=== PATIENT | female | born 1960 | race Caucasian/White ===

== ENCOUNTER 2017-05-20 15:55 | Emergency (ER) | payer BC, MEDICARE ==
[~2017-05-20] VITALS: Ht 165.1 cm; Wt 49.9 kg
--- OUTSIDE RECORDS SUMMARY | 2017-05-20 16:42 | External Medical Summary Rpt | CCD ---
Author Author YESSICA Address Unknown Phone Purpose Continuity of Care Document - through 2016
--- OUTSIDE RECORDS SUMMARY | 2017-05-20 16:42 | External Medical Summary Rpt | CCD ---
Author Author YESSICA Address Unknown Phone [email or web address] Purpose Continuity of Care Document - through 2016
--- OUTSIDE RECORDS SUMMARY | 2017-05-20 16:43 | External Medical Summary Rpt | CCD ---
Author Author [employer] Organization [employer] Address Unknown Phone Unavailable Purpose Continuity of Care Document - through 2016
--- OUTSIDE RECORDS SUMMARY | 2017-05-20 16:43 | External Medical Summary Rpt ---
Author Author YESSICA Ryan, [employer] Organization [employer] Address Unknown Phone Unavailable
--- OUTSIDE RECORDS SUMMARY | 2017-05-20 16:43 | External Medical Summary Rpt | CCD ---
Demographics Home Phone Preferred Language Maltese Marital Status Unknown Zoroastrian Affiliation Unknown Race Unknown Ethnic Group Unknown Author Author , ROSEVANESSA Kael YESSICA Address Unknown Phone [email or web address] Immunization Name Date Rout CVX Reac Dose Comm Prov Is Faci e tion ent ider Refu lity Give sed n Infl 09-1 88 999 Hist D200 No D200 uenz 5-20 oric 32 32 a, 15 al UF Info rmat ion - Sour ce Unsp ecif ied PCV1 07-2 133 999 Hist STEP No STEP 3 1-20 oric PULM PULM 15 al CRV CRV Info rmat ion - Sour ce Unsp ecif ied Infl 10-1 88 999 Hist 1055 No 1055 uenz 5-20 oric 2 2 a, 14 al UF Info rmat ion - Sour ce Unsp ecif ied Tdap 08-2 Intr 115 999 Hist 1055 No 1055 , 7-20 amus oric 2 2 Adso 14 cula al rbed r Info rmat ion - Sour ce Unsp ecif ied PPV2 01-0 Intr 33 999 Hist STEP No STEP 3 1-20 amus oric PULM PULM 10 cula al CRV CRV r Info rmat ion - Sour ce Unsp ecif ied
--- OUTSIDE RECORDS SUMMARY | 2017-05-20 16:43 | External Medical Summary Rpt | CCD ---
Demographics Home Phone Preferred Language [place] Sudanese Marital Status Unknown Caodaism Affiliation Unknown Race Unknown Ethnic Group Unknown Author Author , ROSEVANESSA Kael YESSICA Address Unknown Phone [email or web address] Immunization Name Date Rout CVX Reac Dose [...]
--- NOTE | 2017-05-20 17:02 | Emergency Room Report ---
History of Present Illness Time Seen by MD Cruz Presenting Problem in Triage Pt arrived:Walked Presenting Problem:SEEN IN [facility] THIS MORNING AT [facility] NO TREATMENT RECEIVED. STATES SHE HAS BEEN PROGRESSIVELY WORSENING SOA THIS WEEK WITHOUT RELIEF FROM HER COPD MEDS (SPIRIVA,RESCUE INHALER); PT STATES SHE IS WORRIED ABOUT HER COPD AND WANTS TO BE CHECKED OUT. 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 N Clinical Suspician of Infection? Y Mental Status: 1 - Regular (Normal Baseline) Sepsis Risk:Low Sepsis Risk Have you (or family members/close friends) recently traveled outside the [place]? N If Yes, where/when: Have you had exposure to infectious disease within the past month? TB? Other? Specify: 56 years old white female copd who continues to smoke, she was seen earlier in the [facility]. She'll return to the ED because of one-week history of shortness of air and pain upon taking deep breath. She has no fever no chills no productive cough. She has not seen a primary care physician. The patient became confrontational when I ask about her smoking. Source patient ALLERGIES Coded Allergies: codeine (Mild, 05/20/17) morphine (Mild, 05/20/17) History Medical History General COPD? Yes Asthma? Yes GERD? Yes More? 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 Respiratory see HPI, shortness of breath Cardiovascular chest pain (with traking deep breaths) Gastrointestinal no symptoms reported Genitourinary no symptoms reported. Musculoskeletal no symptoms reported Skin no symptoms reported Psychiatric/Neurological no symptoms reported Physical Exam Vital Signs Vital Signs Date Time Temp Pulse Resp B/P Pulse O2 O2 Flow FiO2 Ox Delivery Rate 05/20 1605 98.2 106 18 147/83 97 - WBC >12,000 or <4,000 or 10% bands? 2 or more SIRS Criteria Met? B/P:147/83 MAP:104 Creatinine >2.0? UA output<0.5ml/kg/hr for 2 hrs? Platelet count >100,000? Lactate >2.0mmol/1? INR >1.2 or PTT > than 60 sec? Evidence of Organ Dysfunction? Provider documented clinical suspician of infection? Y Sepsis Criteria Count: 1 Sepsis Risk: Low Sepsis Risk General Appearance normal appearance, WD/WN Eye Exam - bilateral eye normal exam, bilateral eye PERRL, bilateral eye EOMI Ear, Nose, Throat hearing grossly normal, normal ENT inspection Neck normal inspection, non-tender, supple, full range of motion Respiratory Status Yes: trachea midline, chest symmetrical, non tender chest. No: respiratory distress. Lung Sounds bilateral: normal breath sounds, lungs clear. 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 No Results/Orders Current Medication Orders Sig/Juan C Start time Last Medication Dose Route Stop Time Status Admin Levalbuterol HCl 0 .STK-MED ONE 05/20 1619 DC INH Sodium Chloride 10 ML PRN PRN 05/20 1615 AC IV 05/21 1611 Orders Procedure Date/time Status CHEST(2 VIEWS-NOT PORTABLE) 05/20 1612 Active ELECTROCARDIOGRAM REQUEST 05/20 1611 Active RT REQUEST XOPENEX NEB 05/20 1611 Active ARTERIAL BLOOD GAS REQUEST 05/20 1611 Active IV SALINE LOCK 05/20 1611 Active CULTURE, BLOOD 05/20 1611 Active LACTIC ACID 05/20 1611 Active CBC WITH AUTO DIFF 05/20 1611 Active CARDIAC ENZYMES 05/20 1611 Active CHEM 12 PROFILE 05/20 1611 Active 12 LEAD EKG-JEREMÍAS (INITIAL) 05/20 UNK Active CM/EKG CM/EKG EKG rate, NSR, rhythm, no evid. of ischemic chgs, normal QRS, normal [place] Comments Normal sinus. 88/ Minutes P pulmonale, baseline artifact no acute findings XRAY/CT/US XRAY/CT/US XRAY chest XR interpretation by reviewed by me Xray Results no infiltrates Comment Chronic obstructive pulmonary disease. No acute infiltrates Departure Departure Time of Disposition 1701 Disposition Against Medical Advice Clinical Impression Primary Impression: COPD (chronic obstructive pulmonary disease) Secondary Impressions: Left against medical advice, Tobacco use Condition STABLE Additional Instructions After discussing her smoking habits she became agitated and LEFT AGAINST MEDICAL ADVICE. ED Critical Care Critical Care No If Critical Care minutes are documented, the time involved in the performance of seperately reportable procedures was not counted toward critical care time documented. I directly delivered medical care to this critically ill and/or injured patient. Timely evaluation and treatment was necessary to address the significant organ system(s) dysfunction present in this patient. at 1702
--- NOTE | 2017-05-20 17:02 | Emergency Room Report ---
History of Present Illness Time Seen by MD Cruz Presenting Problem in Triage Pt arrived:Walked Presenting Problem:SEEN IN [facility] THIS MORNING AT [facility] NO TREATMENT RECEIVED. STATES SHE HAS BEEN PROGRESSIVELY WORSENING SOA THIS WEEK WITHOUT RELIEF FROM HER COPD MEDS (SPIRIVA,RESCUE INHALER); PT STATES SHE IS WORRIED ABOUT HER COPD AND WANTS TO BE CHECKED OUT. 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 N Clinical Suspician of Infection? Y Mental Status: 1 - Regular (Normal Baseline) Sepsis Risk:Low Sepsis Risk Have you (or family members/close friends) recently traveled outside the [place]? N If Yes, where/when: Have you had exposure to infectious disease within the past month? TB? Other? Specify: 56 years old white female copd who continues to smoke, she was seen earlier in the [facility]. She'll return to the ED because of one-week history of shortness of air and pain upon taking deep breath. She has no fever no chills no productive cough. She has not seen a primary care physician. The patient became confrontational when I ask about her smoking. Source patient ALLERGIES Coded Allergies: codeine (Mild, 05/20/17) morphine (Mild, 05/20/17) History Medical History General COPD? Yes Asthma? Yes GERD? Yes More? 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 Respiratory see HPI, shortness of breath Cardiovascular chest pain (with traking deep breaths) Gastrointestinal no symptoms reported Genitourinary no symptoms reported. Musculoskeletal no symptoms reported Skin no symptoms reported Psychiatric/Neurological no symptoms reported Physical Exam Vital Signs Vital Signs Date Time Temp Pulse Resp B/P Pulse O2 O2 Flow FiO2 Ox Delivery Rate 05/20 1605 98.2 106 18 147/83 97 - WBC >12,000 or <4,000 or 10% bands? 2 or more SIRS Criteria Met? B/P:147/83 MAP:104 Creatinine >2.0? UA output<0.5ml/kg/hr for 2 hrs? Platelet count >100,000? Lactate >2.0mmol/1? INR >1.2 or PTT > than 60 sec? Evidence of Organ Dysfunction? Provider documented clinical suspician of infection? Y Sepsis Criteria Count: 1 Sepsis Risk: Low Sepsis Risk General Appearance normal appearance, WD/WN Eye Exam - bilateral eye normal exam, bilateral eye PERRL, bilateral eye EOMI Ear, Nose, Throat hearing grossly normal, normal ENT inspection Neck normal inspection, non-tender, supple, full range of motion Respiratory Status Yes: trachea midline, chest symmetrical, non tender chest. No: respiratory distress. Lung Sounds bilateral: normal breath sounds, lungs clear. 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 No Results/Orders Current Medication Orders Sig/Juan C Start time Last Medication Dose Route Stop Time Status Admin Levalbuterol HCl 0 .STK-MED ONE 05/20 1619 DC INH Sodium Chloride 10 ML PRN PRN 05/20 1615 AC IV 05/21 1611 Orders Procedure Date/time Status CHEST(2 VIEWS-NOT PORTABLE) 05/20 1612 Active ELECTROCARDIOGRAM REQUEST 05/20 1611 Active RT REQUEST XOPENEX NEB 05/20 1611 Active ARTERIAL BLOOD GAS REQUEST 05/20 1611 Active IV SALINE LOCK 05/20 1611 Active CULTURE, BLOOD 05/20 1611 Active LACTIC ACID 05/20 1611 Active CBC WITH AUTO DIFF 05/20 1611 Active CARDIAC ENZYMES 05/20 1611 Active CHEM 12 PROFILE 05/20 1611 Active 12 LEAD EKG-JEREMÍAS (INITIAL) 05/20 UNK Active CM/EKG CM/EKG EKG rate, NSR, rhythm, no evid. of ischemic chgs, normal QRS, normal [place] Comments Normal sinus. 88/ Minutes P pulmonale, baseline artifact no acute findings XRAY/CT/US XRAY/CT/US XRAY chest XR interpretation by reviewed by me Xray Results no infiltrates Comment Chronic obstructive pulmonary disease. No acute infiltrates Departure Departure Time of Disposition 1701 Disposition Against Medical Advice Clinical Impression Primary Impression: COPD (chronic obstructive pulmonary disease) Secondary Impressions: Left against medical advice, Tobacco use Condition STABLE Additional Instructions After discussing her smoking habits she became agitated and LEFT AGAINST MEDICAL ADVICE. ED Critical Care Critical Care No If Critical Care minutes are documented, the time involved in the performance of seperately reportable procedures was not counted toward critical care time documented. I directly delivered medical care to this critically ill and/or injured patient. Timely evaluation and treatment was necessary to address the significant organ system(s) dysfunction present in this patient. at 1702
[2017-05-20 17:19] VITALS: BP 147/83
--- NOTE | 2017-05-20 17:29 | RADIOLOGY REPORT PS360 ---
CHEST(2 VIEWS-NOT PORTABLE) COMPARISON: None HISTORY: Chest pain TECHNIQUE: PA and lateral chest FINDINGS: Moderate emphysematous changes seen with hyperexpansion lung peña and depression of the hemidiaphragms. There is mild apical parenchymal scarring bilaterally. The lung peña are free of active infiltrate. Cardiac size is normal and the vascularity is normal and is no pleural fluid. Scarring IMPRESSION: Moderate COPD, no acute chest pathology noted
== END 2017-05-20 17:20 | disposition left against medical advice (07) ==
LOC: ER 15:55
DX: Z53.29 Procedure and treatment not carried out because of patient's decision for other reasons (principal); J44.9 Chronic obstructive pulmonary disease, unspecified; Z88.6 Allergy status to analgesic agent; F17.210 Nicotine dependence, cigarettes, uncomplicated